=== PATIENT | female | born 1990 | race Caucasian/White ===

== ENCOUNTER → 2019-06-23 10:03 | Outpatient (CLI) | payer OTHER, SELFPAY ==
--- NOTE | 2019-06-23 | DI.US.S_ITS ---
LIMITED ULTRASOUND OF LEFT BREAST: 06/23/2019 CLINICAL: Palpable left breast lump. No prior exams were available for comparison. Real-time ultrasound of the left breast 5 o'clock region was performed on the area of interest. IMPRESSION: NEGATIVE There is no sonographic evidence of malignancy. There is no abnormality seen in the left breast to correspond with the palpable abnormality at 5 o'clock, however, clinical followup is recommended. This exam was interpreted at Station ID: [id number]. Electronically Signed By: Jasson hughes/ester:06/23/2019 15:27:15 letter sent: Clinical Evaluation Ultrasound BI-RADS: 1 Negative
== END ==
PROVIDERS: PCP Family Medicine; Visit Provider Family Medicine
DX: N63.21 Unspecified lump in the left breast, upper outer quadrant (principal)
CPT/HCPCS: 76642